=== PATIENT | female | born 1935 | race Caucasian/White ===

== ENCOUNTER 2017-11-21 12:53 | Inpatient (IN) | payer MEDICARE, OTHER ==
[2017-11-21 14:00] LABS: #Eosinphils 0.2 thou/uL (0.0-0.7); #Lymphocytes 1.5 thou/uL (1.20-3.40); #Monocytes 0.8 thou/uL (0.11-0.59); %Basophils 0.2 % (0.0-1.0); %Eosinophils 2.4 % (0.0-10.0); %Monocytes 9.2 % (0.0-10.0); %Neutrophils 70.3 % (42.0-75.0); Hemoglobin 11.9 g/dL (12.0-16.0); Mean Corpuscular HGB CONC 32.8 g/dL (32.0-36.0); Mean Corpuscular Hemoglobin 29.9 pg (27.0-31.0); Mean Corpuscular Volume 91.1 fl (81.0-99.0); Mean Platelet Volume 6.4 fL (7.4-10.4); Platelet Count 340 thou/uL (130-400); RBC Distribution Width 13.5 % (11.5-14.5); Red Blood Cell (RBC) Count 3.96 mill/uL (4.20-5.40); White Blood Cell (WBC) Count 8.5 thou/uL (4.8-10.8)
[2017-11-21] MEDS ORDERED: Vancomycin HCl 1.5 GM in Sodium Chloride 0.9% 250 ML 300 ML IVPB SCH (14:00)
[2017-11-21 14:18] LABS: ALT (SGPT) 13 U/L (8-55); AST (SGOT) 14 U/L (5-34); Albumin 3.7 g/dL (3.4-4.8); Alkaline Phosphatase 76 U/L (40-150); Anion Gap 14 mmol/L (10-20); BUN (Urea Nitrogen) 24 mg/dL (9.8-20.1); Bilirubin, Total 0.2 mg/dL (0.2-1.2); Calc. Creatinine Clearance 0 mL/min (70-130); Calcium 9.2 mg/dL (7.8-10.44); Carbon Dioxide 24 mmol/L (23-31); Chloride 103 mmol/L (98-107); Estimated GFR-MDRD 81; Glucose 95 mg/dL (83-110); Potassium 4.5 mmol/L (3.5-5.1); Protein, Total 6.7 g/dL (6.0-8.3); Sodium 136 mmol/L (136-145)
--- NOTE | 2017-11-21 15:21 | RAD ---
LEFT FOOT 3 VIEWS: HISTORY: Infection to left foot. Peripheral arterial disease. FINDINGS: Bones show osteopenia. Joint narrowing and degenerative change is seen in intertarsal joints and at the tarsometatarsal joints. There is loss of joint space with subluxation and hallux valgus deformity at the first MTP joint. Th ere is lucency involving the base of the proximal phalanx of the great toe, and this could potentiall y represent an area of osteomyelitis. Otherwise, no definite lytic or destructive process identified . IMPRESSION: Deformity of the first metatarsophalangeal joint with subluxation and hallux valgus and secondary deg enerative change. There is an abnormal lucency involving the base of the proximal phalanx of the gre at toe at this first metatarsophalangeal joint. Osteomyelitis at this site cannot be excluded. POS: WILLIAN
[2017-11-21] MEDS ORDERED: Piperacillin/Tazobactam 4.5 GM in Sodium Chloride 0.9% 100 ML IVPB SCH (16:00)
[2017-11-21] MEDS ORDERED: Ondansetron HCl/PF 4 MG/2 ML Vial IVP PRN (16:10)
[2017-11-21] MEDS ORDERED: Acetaminophen 325 MG TAB PO PRN (16:11)
[2017-11-21 16:42] LABS: Hemoglobin A1c 5.3 % (4.0-6.0)
[2017-11-21] MEDS ORDERED: methylPREDNISolone Sod Succ/PF 125 MG/2 ML VIAL ONE (16:48)
[2017-11-21] MEDS ORDERED: Water For Inject, Bacteriostat 30 ML ONE (16:48)
[2017-11-21] MEDS ORDERED: diphenhydrAMINE 50 MG/ML VIAL ONE (16:48)
--- NOTE | 2017-11-21 18:06 | HP ---
CHIEF COMPLAINT: Left foot pain. HISTORY OF PRESENT ILLNESS: This is an 82-year-old female being brought in by her family complaining of left foot pain. Patient's family states that she has been to her community services coordinator recently and has not ed to have had what appears to be a dry gangrene of her toe. The patient was started on antibiotics outpatient, ciprofloxacin. The patient's condition was found to be worsening. The patient's family states that her foot started to become red and more painful to touch, when they would perform cleanin gs on her toes. The patient has had a history of an infection on the right leg in the past and had a n above knee amputation performed as well. Patient has a history of peripheral vascular disease of u nknown origin, is not a diabetic, not a history of high blood pressure. The patient does have a hist ory of hypothyroidism, GERD, Parkinson disease, peripheral vascular disease as well as anxiety. The patient currently not able to provide a history. History obtained from family who was at bedside. N o other associated complaints or symptoms per family. No aggravating or alleviating factors. The pa tiemarce appears to be in considerable pain upon palpation of her foot. ALLERGIES: CEPHALEXIN, PROMETHAZINE and SULFA as well as PHENERGAN. FAMILY HISTORY: Positive for hypertension, diabetes and hyperlipidemia. SOCIAL HISTORY: Denies drinking, denies alcohol. PAST MEDICAL HISTORY: Pertinent for hypothyroidism, GERD, Parkinson disease, dementia, peripheral va scular disease and anxiety. PAST SURGICAL HISTORY: Positive for right-sided [id number] amputation. REVIEW OF SYSTEMS: Twelve-point review of systems is performed. Pertinent positives in the HPI, oth erwise negative. PHYSICAL EXAMINATION: VITAL SIGNS: Blood pressure of 138/88, heart rate of 92, respiratory rate of 20 and temperature of 9 7. GENERAL: The patient appears to be in mild distress, listening to her headset, making sounds that ar e non-coherent. HEENT: Normocephalic and atraumatic. Extraocular muscles intact. Pupils are equal, round, reactive to light and accommodation bilaterally. Oral cavity moist and pink. LUNGS: Clear to auscultations bilaterally, aerating well. No increase in AP diameter. CARDIOVASCULAR: Regular rate and rhythm. S1 and S2. No murmurs, rubs or gallops appreciated. ABDOMEN: Positive bowel sounds. Soft and nontender. EXTREMITIES: Right lower extremity above-knee amputation, left lower extremity positive for right gr eat toe digit 2, digit 3 gangrene, potentially dry gangrene, right foot erythema, cellulitis, tender to palpation. NEUROLOGIC: The patient is disoriented, very rigid. Muscle structure and muscle tone, not moving al l extremities. Not following commands. LABORATORY DATA: CBC within normal limits. BMP within normal limits. RADIOLOGY: Foot x-ray shows deformity of the first metatarsophalangeal joint with subluxation of the hallux valgus secondary to degenerative disease as well as osteomyelitis. There are changes and bon e structure concerning for osteomyelitis. ASSESSMENT AND PLAN: 1. Left foot osteomyelitis. 2. Parkinson disease with dementia. 3. Peripheral vascular disease. 4. Anxiety. 5. Gastroesophageal reflux disease. 6. Hypothyroid. At this point in time, we will admit the patient to Internal Medicine Service. Consults to Infectiou s Diseases as well as Vascular Surgery. We will place the patient on IV fluids and Tylenol p.r.n. P atient to get clindamycin 600 mg q.8 hours given allergies to CEPHALOSPORINS as well as SULFA-BASED D RUGS. We will obtain blood cultures. We will obtain an A1c as well as metabolic panel and CBC a.m. runs for the next 3 days. Patient has remained a FULL CODE at this point in time. We will use hepar in 5000 q.12 hours for gastrointestinal prophylaxis as well as continue home dose of loratadine for h er GERD. We will hold her Cipro that she was taking as outpatient. Case and plan discussed with the patient's family at length. They understand and agree with this plan.
[2017-11-21] MEDS: Clindamycin/D5W 600 MG in Premix Bag 1 BAG IVPB SCH (18:58)
[2017-11-21] MEDS: Sodium Chloride 0.9% 1,000 ML IV SCH (18:59)
[2017-11-21 19:43] VITALS: BMI 23.1
[2017-11-21] MEDS ORDERED: Carbidopa/Levodopa 25-100 mg Tablet PO SCH (20:45)
[2017-11-21] MEDS ORDERED: Donepezil HCl 10 MG TAB PO SCH (20:45)
[2017-11-21] MEDS ORDERED: Cefepime 2 GM in Sodium Chloride 0.9% 100 ML IVPB SCH (21:00)
[2017-11-21] MEDS: Lorazepam 1 MG TAB PO SCH (21:19)
[2017-11-21] MEDS: Loratadine 10 MG TAB PO SCH (21:19)
[2017-11-21] MEDS: Docusate 100 MG CAP PO SCH (21:19)
[2017-11-21] MEDS: Donepezil HCl 10 MG TAB PO SCH (21:20)
[2017-11-21] MEDS: Melatonin 3 MG TAB PO PRN (21:21)
[2017-11-21] MEDS: Heparin 5,000 UNITS/ML VIAL SC SCH (21:21)
[2017-11-21] MEDS: Carbidopa/Levodopa 25-100 mg Tablet PO SCH (21:21)
--- NOTE | 2017-11-21 21:25 | CON ---
DATE OF CONSULTATION: 11/21/2017 REQUESTING PHYSICIAN: Dr. Wilman Felipe from the Emergency Room. CHIEF COMPLAINT: Dry gangrene and cellulitic changes to the left foot. HISTORY OF PRESENT ILLNESS: The patient is an 82-year-old woman with Parkinson' s disease and extensive dementia. A few years ago she underwent right above knee amputation for infectious complications of gangrene affecting the right lower extremity. She has been for some time developing dry gangrenous changes affecting the tips of all of the toes on her remaining left foot, most pronounced on the great toe and becoming less pronounced as one goes laterally, but affecting all five. Over the last few days she has begun developing red changes consistent with cellulitis affecting those toes and the dorsum of the foot and is not improved with oral ciprofloxacin and the family brought her to the emergency room. PAST MEDICAL HISTORY: Significant for Parkinson's disease, hypothyroidism. HOME MEDICATIONS: Include Synthroid, pantoprazole, carbidopa/levodopa, Namenda , Plavix, glucosamine, chondroitin sulfate, Aricept, ciprofloxacin, aspirin, loratadine, lorazepam. ALLERGIES: She describes having allergies to KEFLEX, PHENERGAN and SULFA. FAMILY HISTORY: Denies any known history of vascular disease. REVIEW OF SYSTEMS: Positive for "nasal congestion." PHYSICAL EXAMINATION: GENERAL: At baseline, she is noncommunicative verbally and is bedbound. On exam, she is a demented elderly woman in mild distress. VITAL SIGNS: Temperature is 98.7, heart rate 86, blood pressure 142/70, room air O2 sats are 95%. LUNGS: She has a few rhonchi. CARDIOVASCULAR: Regular rate and rhythm. ABDOMEN: Soft and nontender. EXTREMITIES: She has flexion contractures of her lower extremities. She is status post right AKA. She has palpable left femoral pulse. No palpable pulse , the left popliteal, dorsalis pedis, posterior tibial pulses. She has dry gangrenous changes affecting the tips of all five of the toes on her left foot with much of the distal phalanx of the great toe exposed. There is a pink discoloration and mild edema affecting the foot going from the base of the gangrenous changes to the proximal dorsum. IMPRESSION AND PLAN: Peripheral vascular disease with cellulitic changes complicating dry gangrene in the demented bed bound patient. She has no streaking. Her white count is in the 8s and she is afebrile and clinically is not septic. I think it would be appropriate to initiate antibiotic therapy to try to bring the cellulitis under much control as it is feasible prior to amputation and minimize risk of surgical wound infection. I have discussed with the patient's family that wound healing above knee is far more reliable and that they are generally not much advantage to below knee amputation in nonambulators. MTDD
[2017-11-21] MEDS ORDERED: Clindamycin 6 MG/ML (PEDI) IVPB SCH (22:00)
[2017-11-22] MEDS: Clindamycin/D5W 600 MG in Premix Bag 1 BAG IVPB SCH ×3 (02:26→17:17)
[2017-11-22] MEDS: Sodium Chloride 0.9% 1,000 ML IV SCH ×2 (05:40→17:18)
[2017-11-22 06:24] LABS: Anion Gap 15 mmol/L (10-20); BUN (Urea Nitrogen) 17 mg/dL (9.8-20.1); Calc. Creatinine Clearance 62 mL/min (70-130); Calcium 9.1 mg/dL (7.8-10.44); Carbon Dioxide 20 mmol/L (23-31); Chloride 105 mmol/L (98-107); Estimated GFR-MDRD 83; Glucose 146 mg/dL (83-110); Potassium 4.7 mmol/L (3.5-5.1); Sodium 135 mmol/L (136-145)
[2017-11-22 06:40] LABS: Hemoglobin 11.7 g/dL (12.0-16.0); Lymphocytes 11 % (21-51); MDiff Complete? YES; Mean Corpuscular HGB CONC 32.6 g/dL (32.0-36.0); Mean Corpuscular Hemoglobin 29.7 pg (27.0-31.0); Mean Corpuscular Volume 91.1 fl (81.0-99.0); Mean Platelet Volume 6.7 fL (7.4-10.4); Monocytes 3 % (0-10); Neutrophil 86 % (42-75); Platelet Count 396 thou/uL (130-400); RBC Distribution Width 13.3 % (11.5-14.5); Red Blood Cell (RBC) Count 3.93 mill/uL (4.20-5.40); White Blood Cell (WBC) Count 9.4 thou/uL (4.8-10.8)
[2017-11-22] MEDS: Levothyroxine Sodium 50 MCG TAB PO SCH (06:41)
[2017-11-22] MEDS ORDERED: Clopidogrel Bisulfate 75 MG TAB PO SCH (09:00)
[2017-11-22] MEDS: Calcium Carbonate + Vit D 1 TAB PO SCH (09:11)
[2017-11-22] MEDS: Simethicone Chewable 80 MG TAB PO SCH (09:12)
[2017-11-22] MEDS: Docusate 100 MG CAP PO SCH ×2 (09:12→20:00)
[2017-11-22] MEDS: GLUCOSAMINE CHON PO SCH (09:12)
[2017-11-22] MEDS: Carbidopa/Levodopa 25-100 mg Tablet PO SCH ×2 (09:12→20:52)
[2017-11-22] MEDS: Heparin 5,000 UNITS/ML VIAL SC SCH ×2 (09:13→19:58)
--- NOTE | 2017-11-22 12:00 | RAD ---
PORTABLE CHEST: HISTORY: Preop clearance. FINDINGS: Cardiomegaly. Prominent aortic calcification. Elevation of right hemidiaphragm is stable from the p rior exam of 2009. There is density seen through the cardiac silhouette, which could represent a left lower lobe opacity . This should be further evaluated with upright PA and lateral views of the chest or a chest CT prio r to surgical procedure. Findings were relayed to the patient's nurse on the Surgical A floor, who w ill notify Dr. Cleary of this finding and recommendation. CODE CR POS: [id number]
[2017-11-22] MEDS ORDERED: Aspirin 81 mg Enteric Coated Tablet PO SCH (17:00)
[2017-11-22] MEDS: Milk Of Magnesia 30 ML UDCUP PO SCH (17:15)
--- NOTE | 2017-11-22 17:45 | PDOC.PN ---
- Subjective Encounter Start Date: 11/22/17 Encounter Start Time: 17:43 Patient seen at bedside. No overnight events, no new complaints. - Objective MAR Reviewed: Yes Vital Signs & Weight: Vital Signs (12 hours) Temp Pulse Resp BP Pulse Ox 11/22/17 15:39 98.5 F 69 20 124/51 L 100 11/22/17 12:00 98.4 F 69 18 92/51 L 100 11/22/17 08:00 97.5 F L 69 18 102/75 100 Weight Weight 130 lb 12.8 oz Result Diagrams: 11/22/17 05:33 11/22/17 05:33 Phys Exam - Physical Examination Constitutional: NAD HEENT: moist MMs Neck: no JVD Respiratory: no rales Cardiovascular: RRR Gastrointestinal: soft R AKA Deviation from normal: gangrenous changes in all toes on L foot Dx/Plan (1) Osteomyelitis Code(s): M86.9 - OSTEOMYELITIS, UNSPECIFIED Status: Acute Qualifiers: Laterality: left (2) Gangrene of left foot Code(s): I96 - GANGRENE, NOT ELSEWHERE CLASSIFIED Status: Acute (3) Parkinson disease Code(s): G20 - PARKINSON'S DISEASE Status: Chronic (4) Cellulitis Code(s): L03.90 - CELLULITIS, UNSPECIFIED Status: Suspected Qualifiers: Site of cellulitis: extremity Site of cellulitis of extremity: lower extremity Laterality: left Qualified Code(s): L03.116 - Cellulitis of left lower limb - Plan cont current plan of care, plan discussed w/ family, continue antibiotics, social science teacher, DVT proph w/SCDs * Hold Plavix. * Pre-op EKG * For AKA in AM * Continue IV antibiotics
--- NOTE | 2017-11-22 19:52 | CON ---
DATE OF CONSULTATION: 11/22/2017 REASON FOR CONSULTATION: Left foot areas of gangrene. HISTORY OF PRESENT ILLNESS: An 82-year-old who has a history of Parkinson's disease with dementia, a nd peripheral vascular disease with a prior right above-knee [place] [address] Chen, who now has developed progression of dry gangrene of the first, second, and third left toes associated with cellulitis of the forefoot area. The patient was admitted and placed on IV antimicrobial therapy and CV Surgery has evaluated the patient and I believe she is scheduled for amputation tentatively for t omorrow. Ms. Cifuentes now is awake, but she is unable to interact with the examiner due to her severe cognitive deficit, but her sister is in the room and was able to inform me. She is 100% dependent o n family members for her activities of daily living. According to the sister, there has been no resp iratory symptoms. No abdominal issues. No vomiting. No bleeding and no genitourinary symptoms. N o diarrhea. PAST MEDICAL HISTORY: Include peripheral vascular disease, Parkinson's disease, dementia, probably p rior infarcts, a question of vascular insufficiency of the mesenteric are. PAST SURGICAL HISTORY: Right AKA. ALLERGIES: BACTRIM, KEFLEX, GEODON, PHENERGAN. SOCIAL HISTORY: Lives in [place] with family members. Never a smoker. FAMILY HISTORY: Coronary artery disease. PHYSICAL EXAMINATION: Current physical exam, VITAL SIGNS: T-max 99.5, currently 98.4; blood pressure 92/51; pulse 69; respirations 18; O2 sat 100 %. SKIN: Shows the area of first, second, and third left toe gangrene with erythema to the forefoot, le ft side. The patient has a peripheral IV access in one of the upper extremities. No Oneill catheter. No lymphadenopathy. Contractures in the left lower extremity. HEENT: She has blepharitis. Oral cavity with numerous teeth with marked decay and gum disease. NECK: Supple. LUNGS: With symmetric clear breath sounds. HEART: S1, S2. Regular rate. ABDOMEN: Soft. Not distended. No ascites. No bladder distention. EXTREMITIES: No evidence of tenderness. Contracted left lower extremity. I could not feel any popl iteal, dorsalis pedis, or posterior tibialis pulses. LABORATORY DATA: White cell count 9.4, hemoglobin 11, platelets 396 with a normal differential excep t for some lymphocytopenia. Creatinine normal. Liver profile normal. Sodium is 135, albumin 3.7. TSH is 7.6. Urinalysis is normal. We will have culture from the foot, which is a swab from the open areas with presumptive enterococcus species which could be a contaminant or just a colonizer of the area. Two sets of blood cultures thus far are negative. Foot x-ray from admission with deformity of first MPJ joint; abnormal lucency at the base of the proximal phalanx, great toe. ASSESSMENT: 1. Parkinson's disease with severe dementia. 2. Contractures in limbs. 3. Prior above-knee amputation, right side. 4. Gangrene of first, second, and third left toes with cellulitis of forefoot; now improved. DISCUSSION: The patient does not have the expectation of functional use of the left lower extremity and she has evidence of a small vessel disease likely in the left leg. I believe the best choice for management is the planned amputation. I discussed that with a relative, who seemed to be interested since it would yield the best quality of life for the patient vis-?-vis her functional status. I do not think vascular studies would give us any information that would price changer. Continue ant imicrobial therapy until the amputation and then discontinue it as long as blood cultures remain nega tive.
[2017-11-22] MEDS: Lorazepam 1 MG TAB PO SCH (20:52)
[2017-11-22] MEDS: Loratadine 10 MG TAB PO SCH (20:52)
[2017-11-22] MEDS: Donepezil HCl 10 MG TAB PO SCH (20:52)
[2017-11-22] MEDS: Melatonin 3 MG TAB PO PRN (20:53)
[2017-11-23] MEDS: Clindamycin/D5W 600 MG in Premix Bag 1 BAG IVPB SCH ×3 (01:55→17:51)
[2017-11-23 05:52] LABS: Hemoglobin 10.6 g/dL (12.0-16.0); Lymphocytes 36 % (21-51); MDiff Complete? YES; Mean Corpuscular HGB CONC 32.7 g/dL (32.0-36.0); Mean Corpuscular Hemoglobin 29.6 pg (27.0-31.0); Mean Corpuscular Volume 90.5 fl (81.0-99.0); Mean Platelet Volume 6.9 fL (7.4-10.4); Monocytes 5 % (0-10); Neutrophil 57 % (42-75); Platelet Count 313 thou/uL (130-400); RBC Distribution Width 13.3 % (11.5-14.5); Red Blood Cell (RBC) Count 3.57 mill/uL (4.20-5.40); White Blood Cell (WBC) Count 6.2 thou/uL (4.8-10.8)
[2017-11-23] MEDS: Levothyroxine Sodium 50 MCG TAB PO SCH (06:07)
[2017-11-23 06:08] LABS: Anion Gap 13 mmol/L (10-20); BUN (Urea Nitrogen) 19 mg/dL (9.8-20.1); Calc. Creatinine Clearance 65 mL/min (70-130); Calcium 8.5 mg/dL (7.8-10.44); Carbon Dioxide 21 mmol/L (23-31); Chloride 108 mmol/L (98-107); Estimated GFR-MDRD 88; Glucose 89 mg/dL (83-110); Potassium 4.2 mmol/L (3.5-5.1); Sodium 138 mmol/L (136-145)
[2017-11-23] MEDS ORDERED: Fentanyl 100 MCG/2 ML VIAL ONE (07:33)
[2017-11-23] MEDS ORDERED: Fentanyl 100 MCG/2 ML VIAL SLOW IVP PRN (08:48)
[2017-11-23] MEDS ORDERED: Ibuprofen 200 MG TAB PO PRN (08:48)
--- NOTE | 2017-11-23 09:11 | OP ---
DATE OF PROCEDURE: 11/23/2017 PREOPERATIVE DIAGNOSIS: Gangrene, left foot with contractures left leg. PROCEDURE: Left [id number] amputation. SURGEON: Dr. Kael Chen ANESTHESIA: Spinal. ESTIMATED BLOOD LOSS: Less than 100. PROCEDURE IN DETAIL: After adequate anesthesia had been obtained, the patient was prepped and draped . Skin was marked for amputation above the knee, anterior and posterior flaps. Knife was used to in cise the skin circumferentially following which the Bovie was used to divide the soft tissues, preser ving the long and rectus flap anteriorly. Vessels were ligated and divided and nerves were pulled an d divided sharply. Gigli saw was used to divide the femur. The specimen was passed off the field. Bone was then rasped smooth on the edges and then the rectus femoris was then approximated over the f emur. Following this, the skin was closed with gloria after irrigation. The patient is to be taken to the recovery room.
[2017-11-23] MEDS ORDERED: Ondansetron HCl/PF 4 MG/2 ML Vial IVP PRN (09:28)
[2017-11-23] MEDS: Docusate 100 MG CAP PO SCH ×2 (10:25→21:18)
[2017-11-23] MEDS: Sodium Chloride 0.9% 1,000 ML IV SCH ×2 (10:26→17:52)
[2017-11-23] MEDS: Calcium Carbonate + Vit D 1 TAB PO SCH (10:33)
[2017-11-23] MEDS: Carbidopa/Levodopa 25-100 mg Tablet PO SCH ×2 (10:34→21:09)
[2017-11-23] MEDS: Simethicone Chewable 80 MG TAB PO SCH (10:34)
[2017-11-23] MEDS: GLUCOSAMINE CHON PO SCH (10:35)
[2017-11-23] MEDS: Heparin 5,000 UNITS/ML VIAL SC SCH ×2 (11:28→21:09)
[2017-11-23] MEDS: traMADol HCl 50 MG TAB PO PRN (13:36)
--- NOTE | 2017-11-23 14:29 | PQF ---
NUVIA TIPTON MALIK MD [id number] SURG A- [id number] CLINICAL DOCUMENTATION IMPROVEMENT CLARIFICATION FORM: ICD-10 Updated PLEASE DO AN ADDENDUM TO THE PROGRESS NOTE WITH ANY DOCUMENTATION UPDATES OR ADDITIONS AND CARRY THROUGH TO DC SUMMARY. THANK YOU. DATE: 11-23-17 ATTN: DR. PARDO Please exercise your independent, professional judgment in responding to the clarification form. Clinical indicators are provided on the bottom of this form for your review Please check appropriate box(s): [ ] Hemiplegia Specify: [ ] Non dominant side [ ] Dominant side Status: [ ] Complete [ ] Incomplete [ ] Functional Quadriplegia W/ Parkinson dx w/ severe dementia [ ] Weakness (please specify anatomical area) Specify: [ ] Non dominant side [ ] Dominant side [ ] Other diagnosis [ ] Unable to determine CLINICAL INDICATORS - SIGNS / SYMPTOMS / LABS CONSULT: FLEXION CONTRACTURES LE; DEMENTED; BED BOUND PATIENT 11-21 NURSING ASSESSMENT: UNABLE TO STAND / WALK ORIENTATION - ABUSABLE TO NAME/ SPEECH UNCLEAR TOTAL ASSISTANCE CONTRACTED BUE AND LLE TOTAL INCONTINENCE - DIAPER RISK FACTORS H&P: ALZHEIMERS W/ SEVERE DEMENTIA CONSULT: DEMENTED TREATMENT: 11-21 @ 2014 NURSING ASSESSMENT: UNABLE TO STAND / WALK TOTAL ASSISTANCE - TURN Q2H TOTAL INCONTINENCE - DIAPER THANK YOU, WHITNEY (This form is maintained as a part of the permanent medical record) 2014 [employer]. All Rights Reserved Whitney Moreno RN, BS [email or web address]
[2017-11-23] MEDS: Milk Of Magnesia 30 ML UDCUP PO SCH (15:17)
[2017-11-23] MEDS: Loratadine 10 MG TAB PO SCH (21:08)
[2017-11-23] MEDS: Donepezil HCl 10 MG TAB PO SCH (21:08)
[2017-11-23] MEDS: Lorazepam 1 MG TAB PO SCH (21:09)
[2017-11-23] MEDS: Melatonin 3 MG TAB PO PRN (21:09)
[2017-11-24] MEDS: Clindamycin/D5W 600 MG in Premix Bag 1 BAG IVPB SCH ×3 (01:46→17:28)
[2017-11-24] MEDS: traMADol HCl 50 MG TAB PO PRN (06:23)
[2017-11-24] MEDS: Levothyroxine Sodium 50 MCG TAB PO SCH (06:24)
[2017-11-24 06:56] LABS: Hemoglobin 10.4 g/dL (12.0-16.0); Mean Corpuscular HGB CONC 32.1 g/dL (32.0-36.0); Mean Corpuscular Hemoglobin 28.8 pg (27.0-31.0); Mean Corpuscular Volume 89.8 fl (81.0-99.0); Mean Platelet Volume 6.5 fL (7.4-10.4); Platelet Count 351 thou/uL (130-400); RBC Distribution Width 13.3 % (11.5-14.5); Red Blood Cell (RBC) Count 3.61 mill/uL (4.20-5.40)
[2017-11-24 07:19] LABS: Anion Gap 12 mmol/L (10-20); BUN (Urea Nitrogen) 13 mg/dL (9.8-20.1); Calc. Creatinine Clearance 75 mL/min (70-130); Calcium 8.5 mg/dL (7.8-10.44); Carbon Dioxide 21 mmol/L (23-31); Chloride 105 mmol/L (98-107); Estimated GFR-MDRD Greater than 90; Glucose 101 mg/dL (83-110); Magnesium 1.5 mg/dL (1.6-2.6); Potassium 3.8 mmol/L (3.5-5.1); Sodium 134 mmol/L (136-145)
[2017-11-24] MEDS: Saccharomyces boulardii 250 MG CAP PO SCH (08:08)
[2017-11-24] MEDS: Clopidogrel Bisulfate 75 MG TAB PO SCH (08:08)
[2017-11-24] MEDS: Carbidopa/Levodopa 25-100 mg Tablet PO SCH ×2 (08:08→21:37)
[2017-11-24] MEDS: Calcium Carbonate + Vit D 1 TAB PO SCH (08:08)
[2017-11-24] MEDS: Simethicone Chewable 80 MG TAB PO SCH (08:09)
[2017-11-24] MEDS: GLUCOSAMINE CHON PO SCH (08:09)
[2017-11-24] MEDS: Heparin 5,000 UNITS/ML VIAL SC SCH ×2 (08:09→21:38)
[2017-11-24] MEDS: Docusate 100 MG CAP PO SCH ×2 (08:17→21:38)
[2017-11-24 08:24] LABS: Band 2 % (5-11); Eosinophils 1 % (0-10); Lymphocytes 23 % (21-51); MDiff Complete? YES; Monocytes 6 % (0-10); Neutrophil 68 % (42-75); RBC Morphology Normal
[2017-11-24] MEDS ORDERED: Magnesium 2 GM/NS 0.9% 100 ML 2 GM in Premix Bag 1 BAG IVPB SCH (09:15)
--- NOTE | 2017-11-24 09:15 | PDOC.PN ---
- Subjective Encounter Start Date: 11/23/17 Encounter Start Time: 17:00 -: non-verbal Patient seen and examined. Pain controlled per family. No overnight events. - Objective MAR Reviewed: Yes Vital Signs & Weight: Vital Signs (12 hours) Temp Pulse Resp BP Pulse Ox 11/23/17 23:38 98.7 F 76 16 155/78 H 74 L Weight Weight 130 lb 12.8 oz I&O: 11/23/17 11/24/17 11/25/17 06:59 06:59 06:59 Intake Total 2850 975 Balance 2850 975 Result Diagrams: 11/24/17 06:20 11/24/17 06:20 Phys Exam - Physical Examination Constitutional: NAD Respiratory: no wheezing, no rhonchi Cardiovascular: RRR, no rub Gastrointestinal: soft, non-tender, positive bowel sounds Dx/Plan - Plan plan discussed w/ family, DVT proph w/heparin IMPRESSION: 1. Left foot osteomyelitis and dry gangrene s/p AKA 11/23 2. Parkinson's disease 3. PVD 4. Anxiety 5. GERD/Functional Quadriplegia W/ Parkinson dx w/ severe dementia PLAN: * Pain control with Fentanyl/Tramadol * Cont to monitor * Cont current meds as below * Home meds started * High risk of delirium Review of Systems - Review of Systems Other: Cannot obtain due to current mentation - Medications/Allergies Allergies/Adverse Reactions: Allergies Allergy/AdvReac Type Severity Reaction Status Date / Time cephalexin [From Keflex] Allergy Verified 11/21/17 17:56 promethazine [From Phenergan] Allergy Verified 11/21/17 17:56 Sulfa (Sulfonamide Allergy Verified 11/21/17 17:56 Antibiotics) vancomycin Allergy Verified 11/21/17 17:56 Medications: Current Medications Acetaminophen (Tylenol) 325 mg PO Q6H PRN PRN Reason: Headache/Fever or Pain Calcium/Vitamin D (Caltrate 600 + Vit D) 1 tab PO DAILY [facility] Last Admin: 11/24/17 08:08 Dose: 1 tab Carbidopa/Levodopa (Sinemet 25-100) 1 tab PO BID [facility] Last Admin: 11/24/17 08:08 Dose: 1 tab Clopidogrel Bisulfate (Plavix) 75 mg PO DAILY [facility] Last Admin: 11/24/17 08:08 Dose: 75 mg Docusate Sodium (Colace) 100 mg PO BID [facility] Last Admin: 11/24/17 08:17 Dose: 100 mg Donepezil HCl (Aricept) 10 mg PO HS [facility] Last Admin: 11/23/17 21:08 Dose: 10 mg Fentanyl (Sublimaze) 25 mcg SLOW IVP Q2H PRN PRN Reason: Severe Pain (7-10) Last Admin: 11/23/17 12:06 Dose: 25 mcg Heparin Sodium (Porcine) (Heparin) 5,000 units SC BID [facility] Last Admin: 11/24/17 08:09 Dose: 5,000 units Sodium Chloride (Normal Saline 0.9%) 1,000 mls @ 75 mls/hr IV .[id number] [facility] Last Admin: 11/23/17 17:52 Dose: 1,000 mls Clindamycin Phosphate/Dextrose (600 mg/ Device) 50 mls @ 100 mls/hr IVPB 0200, 1000,1800 [facility] Last Admin: 11/24/17 01:46 Dose: 50 mls Magnesium Sulfate 2 gm/ Device 100 mls @ 100 mls/hr IVPB NOW [facility] Stop: 11/24/17 11:15 Ibuprofen (Motrin) 200 mg PO Q4H PRN PRN Reason: Pain Levothyroxine Sodium (Synthroid) 50 mcg PO 0600 [facility] Last Admin: 11/24/17 06:24 Dose: 50 mcg Loratadine (Claritin) 10 mg PO HS [facility] Last Admin: 11/23/17 21:08 Dose: 10 mg Lorazepam (Ativan) 1 mg PO HS [facility] Last Admin: 11/23/17 21:09 Dose: 1 mg Magnesium Hydroxide (Milk Of Magnesium) 30 ml PO QPM[facility] Last Admin: 11/23/17 15:17 Dose: Not Given Melatonin (Melatonin) 6 mg PO HS PRN PRN Reason: Insomnia Last Admin: 11/23/17 21:09 Dose: 6 mg Memantine (Namenda) 10 mg PO DAILY [facility] Last Admin: 11/24/17 08:08 Dose: 10 mg Miscellaneous Medication (Pharmacy To Dose) 1 each IVPB ONE PRN PRN Reason: Pharmacy to dose Stop: 12/23/17 18:35 Ondansetron HCl (Zofran) 4 mg IVP Q6H PRN PRN Reason: Nausea/Vomiting Pantoprazole Sodium (Protonix) 40 mg PO DAILY [facility] Last Admin: 11/24/17 08:09 Dose: 40 mg Glucosamine Won 1 (Tablet) 1 each PO DAILY [facility] Last Admin: 11/24/17 08:09 Dose: 1 each Saccharomyces Boulardii (Florastor) 250 mg PO DAILY [facility] Last Admin: 11/24/17 08:08 Dose: 250 mg Simethicone (Mylicon Chewable) 80 mg PO DAILY [facility] Last Admin: 11/24/17 08:09 Dose: 80 mg Tramadol HCl (Ultram) 50 mg PO Q6H PRN PRN Reason: Moderate Pain (4-6) Last Admin: 11/24/17 06:23 Dose: 50 mg
[2017-11-24] MEDS: Sodium Chloride 0.9% 1,000 ML IV SCH (10:11)
--- NOTE | 2017-11-24 16:11 | PDOC.PN ---
- Subjective Encounter Start Date: 11/24/17 Encounter Start Time: 09:00 -: non-verbal Patient seen and examined. No new complaints. No overnight events - Objective MAR Reviewed: Yes Vital Signs & Weight: Vital Signs (12 hours) Temp Pulse Resp BP Pulse Ox 11/24/17 12:00 98.3 F 78 20 139/63 94 L 11/24/17 08:09 99.7 F H 84 20 93 L 11/24/17 07:50 99.7 F H 84 20 165/74 H 93 L Weight Weight 130 lb 12.8 oz I&O: 11/23/17 11/24/17 11/25/17 06:59 06:59 06:59 Intake Total 2850 975 Balance 2850 975 Result Diagrams: 11/24/17 06:20 11/24/17 06:20 Phys Exam - Physical Examination Constitutional: NAD Respiratory: no wheezing, no rhonchi Cardiovascular: RRR, no rub Gastrointestinal: soft, non-tender, positive bowel sounds B/L AKA Dx/Plan - Plan plan discussed w/ family, DVT proph w/heparin IMPRESSION: 1. Left foot osteomyelitis and dry gangrene s/p AKA 11/23 2. Parkinson's disease - on Sinemet 3. PVD - on Plavix 4. Hypomagnesemia 5. GERD/Functional Quadriplegia W/ Parkinson dx with severe dementia/Anxiety PLAN: * Replace Magnessium * Pain control with Fentanyl/Tramadol * Cont to monitor * Cont current meds as below Laboratory Tests 11/24/17 06:20 Magnesium 1.5 L Review of Systems - Review of Systems Other: Cannot obtain due to current mentation. - Medications/Allergies Allergies/Adverse Reactions: Allergies Allergy/AdvReac Type Severity Reaction Status Date / Time cephalexin [From Keflex] Allergy Verified 11/21/17 17:56 promethazine [From Phenergan] Allergy Verified 11/21/17 17:56 Sulfa (Sulfonamide Allergy Verified 11/21/17 17:56 Antibiotics) vancomycin Allergy Verified 11/21/17 17:56 Medications: Current Medications Acetaminophen (Tylenol) 325 mg PO Q6H PRN PRN Reason: Headache/Fever or Pain Calcium/Vitamin D (Caltrate 600 + Vit D) 1 tab PO DAILY [facility] Last Admin: 11/24/17 08:08 Dose: 1 tab Carbidopa/Levodopa (Sinemet 25-100) 1 tab PO BID [facility] Last Admin: 11/24/17 08:08 Dose: 1 tab Clopidogrel Bisulfate (Plavix) 75 mg PO DAILY [facility] Last Admin: 11/24/17 08:08 Dose: 75 mg Docusate Sodium (Colace) 100 mg PO BID [facility] Last Admin: 11/24/17 08:17 Dose: 100 mg Donepezil HCl (Aricept) 10 mg PO HS [facility] Last Admin: 11/23/17 21:08 Dose: 10 mg Fentanyl (Sublimaze) 25 mcg SLOW IVP Q2H PRN PRN Reason: Severe Pain (7-10) Last Admin: 11/23/17 12:06 Dose: 25 mcg Heparin Sodium (Porcine) (Heparin) 5,000 units SC BID [facility] Last Admin: 11/24/17 08:09 Dose: 5,000 units Sodium Chloride (Normal Saline 0.9%) 1,000 mls @ 75 mls/hr IV .[id number] [facility] Last Admin: 11/24/17 10:11 Dose: 1,000 mls Clindamycin Phosphate/Dextrose (600 mg/ Device) 50 mls @ 100 mls/hr IVPB 0200, 1000,1800 [facility] Last Admin: 11/24/17 10:10 Dose: 50 mls Ibuprofen (Motrin) 200 mg PO Q4H PRN PRN Reason: Pain Levothyroxine Sodium (Synthroid) 50 mcg PO 0600 [facility] Last Admin: 11/24/17 06:24 Dose: 50 mcg Loratadine (Claritin) 10 mg PO HS [facility] Last Admin: 11/23/17 21:08 Dose: 10 mg Lorazepam (Ativan) 1 mg PO HS [facility] Last Admin: 11/23/17 21:09 Dose: 1 mg Magnesium Hydroxide (Milk Of Magnesium) 30 ml PO QPM-[facility] Last Admin: 11/23/17 15:17 Dose: Not Given Melatonin (Melatonin) 6 mg PO HS PRN PRN Reason: Insomnia Last Admin: 11/23/17 21:09 Dose: 6 mg Memantine (Namenda) 10 mg PO DAILY [facility] Last Admin: 11/24/17 08:08 Dose: 10 mg Miscellaneous Medication (Pharmacy To Dose) 1 each IVPB ONE PRN PRN Reason: Pharmacy to dose Stop: 12/23/17 18:35 Ondansetron HCl (Zofran) 4 mg IVP Q6H PRN PRN Reason: Nausea/Vomiting Pantoprazole Sodium (Protonix) 40 mg PO DAILY [facility] Last Admin: 11/24/17 08:09 Dose: 40 mg Glucosamine Won 1 (Tablet) 1 each PO DAILY [facility] Last Admin: 11/24/17 08:09 Dose: 1 each Saccharomyces Boulardii (Florastor) 250 mg PO DAILY [facility] Last Admin: 11/24/17 08:08 Dose: 250 mg Simethicone (Mylicon Chewable) 80 mg PO DAILY [facility] Last Admin: 11/24/17 08:09 Dose: 80 mg Tramadol HCl (Ultram) 50 mg PO Q6H PRN PRN Reason: Moderate Pain (4-6) Last Admin: 11/24/17 06:23 Dose: 50 mg
[2017-11-24] MEDS: Milk Of Magnesia 30 ML UDCUP PO SCH (17:29)
[2017-11-24] MEDS: Donepezil HCl 10 MG TAB PO SCH (21:37)
[2017-11-24] MEDS: Lorazepam 1 MG TAB PO SCH (21:37)
[2017-11-24] MEDS: Loratadine 10 MG TAB PO SCH (21:37)
[2017-11-25] MEDS: Levothyroxine Sodium 50 MCG TAB PO SCH (05:57)
[2017-11-25] MEDS: traMADol HCl 50 MG TAB PO PRN (05:57)
--- NOTE | 2017-11-25 07:52 | DIS ---
HOSPITAL COURSE: This is a patient cared for at home by her family with advanced dementia, prior rig ht [id number] amputation who presents with progressive gangrenous changes in her left foot and as sociated cellulitis. She was taken to the operating room for a left above knee amputation and did we ll from that. Wound edges are pink and no drainage at the time of discharge. She will resume her ho me medicines including Cipro which she has been taking. Discharge and follow up instructions have be en given.
[2017-11-25] MEDS ORDERED: Cipro 250 MG TAB PO SCH ×3 (08:00→20:00)
[2017-11-25] MEDS: Simethicone Chewable 80 MG TAB PO SCH (09:38)
[2017-11-25] MEDS: Heparin 5,000 UNITS/ML VIAL SC SCH (09:38)
[2017-11-25] MEDS: Clopidogrel Bisulfate 75 MG TAB PO SCH (09:38)
[2017-11-25] MEDS: Calcium Carbonate + Vit D 1 TAB PO SCH (09:38)
[2017-11-25] MEDS: Carbidopa/Levodopa 25-100 mg Tablet PO SCH (09:38)
[2017-11-25] MEDS: Docusate 100 MG CAP PO SCH (09:38)
[2017-11-25] MEDS: Saccharomyces boulardii 250 MG CAP PO SCH (09:39)
[2017-11-25] MEDS: GLUCOSAMINE CHON PO SCH (09:39)
[2017-11-25 10:07] VITALS: BP 148/55; TEMP 97.9
--- NOTE | 2017-11-25 18:14 | DIS ---
DATE OF DISCHARGE: 11/25/2017 DISCHARGE DISPOSITION: Home with home health care through [facility]. FOLLOWUP: 1. Follow up with Dr. Ricki Cancino in 1 week. 2. Follow up with Dr. Kael Chen as scheduled. ALLERGIES: The patient is allergic to VANCOMYCIN, SULFA, PHENERGAN and KEFLEX. DISCHARGE MEDICATIONS: 1. Ciprofloxacin 500 mg b.i.d., #10. 2. Tramadol as needed for pain. Other home medications were resumed including Aspirin 81 mg daily, carbidopa/levodopa 25/100 ER one t ablet b.i.d., Plavix 75 mg daily, Colace 100 mg b.i.d., Aricept 10 mg q.p.m., glucosamine one tablet daily, levothyroxine 50 mcg daily, loratadine 10 mg at bedtime, lorazepam 1 mg at bedtime, magnesium hydroxide 400 mg q.p.m., melatonin 6 mg at bedtime, Namenda 10 mg daily, multivitamin 1 tablet daily, Protonix 40 mg daily, simethicone 80 mg daily. INPATIENT CONSULTANTS: Infectious Disease, Dr. Coleman; Cardiovascular, Dr. Chen. BRIEF HOSPITAL COURSE: The patient is an 82-year-old female with hypertension; diabetes mellitus, ty pe 2; peripheral vascular disease; and a right AKA in the past; presented to the hospital with left f oot pain. Her workup was consistent with left foot osteomyelitis. Please refer to the history and p hysical dated 11/21/[address] Quigley for further details. The patient was admitted to the surgical floor with the above diagnosis. She underwent left AKA on 0 11/23/2017. She has been cleared by Dr. Chen for discharge. She will be discharged home with home [facility] per family's request. FINAL DIAGNOSES: 1. Left foot osteomyelitis with dry gangrene, status post AKA this admission. 2. 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 3. Peripheral vascular disease. 4. Parkinson disease. 5. Hypomagnesemia, replaced. 6. Gastroesophageal reflux disease. 7. Functional quadriplegia with Parkinson disease with severe dementia and anxiety. 8. Chronic anemia. 9. Hyponatremia. Plan of care was discussed with the patient and the family at the bedside. They stated understanding .
--- NOTE | 2017-11-26 19:43 | EKG ---
Test Reason : Blood Pressure : / mmHG Vent. Rate : 080 BPM Atrial Rate : 075 BPM P-R Int : 000 ms QRS Dur : 100 ms QT Int : 426 ms P-R-T Axes : 000 -03 204 degrees QTc Int : 491 ms Accelerated Junctional rhythm Septal infarct (cited on or before 10-JUL-2010) Abnormal ECG When compared with ECG of 10-JUL-2010 16:38, Premature ventricular complexes are no longer Present Questionable change in initial forces of Septal leads Inverted T waves have replaced nonspecific T wave abnormality in Inferior leads Confirmed by PEREZ SHEPHERD (2) on 11/26/2017 7:43:17 PM Referred By: ONUR Confirmed By:PEREZ SHEPHERD
== END 2017-11-25 10:08 | disposition home or self-care (01) | DRG 474 ==
LOC: ERS 12:53 → SURG A 17:10
PROVIDERS: ADMIT Internal Medicine; ATTEND Internal Medicine
PROC: 0Y6D0Z3 Detachment at Left Upper Leg, Low, Open Approach (ICD-10-PCS; principal; 2017-11-23)
DX: M86.8X7 Other osteomyelitis, ankle and foot (principal); R53.2 Functional quadriplegia; I96 Gangrene, not elsewhere classified; G20 Parkinson's disease; E83.42 Hypomagnesemia; E87.1 Hypo-osmolality and hyponatremia; L03.116 Cellulitis of left lower limb; D64.9 Anemia, unspecified; F02.80 Dementia in other diseases classified elsewhere, unspecified severity, without behavioral disturbance, psychotic disturbance, mood disturbance, and anxiety; I73.9 Peripheral vascular disease, unspecified; M24.575 Contracture, left foot; E03.9 Hypothyroidism, unspecified; K21.9 Gastro-esophageal reflux disease without esophagitis; F41.9 Anxiety disorder, unspecified; Z88.1 Allergy status to other antibiotic agents; Z88.2 Allergy status to sulfonamides; Z88.9 Allergy status to unspecified drugs, medicaments and biological substances; Z83.3 Family history of diabetes mellitus; Z82.49 Family history of ischemic heart disease and other diseases of the circulatory system
CPT/HCPCS: 36415; 71045; 80048; 80053; 83036; 83605; 83735; 85007; 85025; 85027; 86850; 86900; 86901; 87040; 87070; 87077; 87186; 87205; 88307; 93005; 93010; 96365; 96366; 96375; J1200; J1644; J2543; J2930; J3010; J3370; J3475; J3490; J7050

== ENCOUNTER 2017-12-07 17:27 | Observation (INO) | payer MEDICARE, OTHER ==
[2017-12-07 18:29] LABS: #Eosinphils 0.3 thou/uL (0.0-0.7); #Lymphocytes 2.1 thou/uL (1.20-3.40); #Monocytes 0.8 thou/uL (0.11-0.59); #Neutrophils 5.5 thou/uL (1.40-6.50); %Basophils 0.3 % (0.0-1.0); %Eosinophils 3.9 % (0.0-10.0); %Lymphocytes 24.1 % (21.0-51.0); %Monocytes 8.6 % (0.0-10.0); %Neutrophils 63.1 % (42.0-75.0); Hemoglobin 11.6 g/dL (12.0-16.0); Mean Corpuscular HGB CONC 31.9 g/dL (32.0-36.0); Mean Corpuscular Hemoglobin 28.4 pg (27.0-31.0); Mean Platelet Volume 6.8 fL (7.4-10.4); Platelet Count 473 thou/uL (130-400); RBC Distribution Width 13.8 % (11.5-14.5); Red Blood Cell (RBC) Count 4.09 mill/uL (4.20-5.40); White Blood Cell (WBC) Count 8.8 thou/uL (4.8-10.8)
[2017-12-07] MEDS ORDERED: Meropenem 1 GM in Sterile Water 20 ML SLOW IVP SCH (18:30)
[2017-12-07 18:51] LABS: ALT (SGPT) 11 U/L (8-55); AST (SGOT) 15 U/L (5-34); Albumin 3.7 g/dL (3.4-4.8); Alkaline Phosphatase 92 U/L (40-150); Anion Gap 16 mmol/L (10-20); BUN (Urea Nitrogen) 23 mg/dL (9.8-20.1); Bilirubin, Total 0.2 mg/dL (0.2-1.2); Calc. Creatinine Clearance 0 mL/min (70-130); Calcium 9.2 mg/dL (7.8-10.44); Carbon Dioxide 21 mmol/L (23-31); Chloride 103 mmol/L (98-107); Estimated GFR-MDRD 85; Globulin 2.9 g/dL (2.4-3.5); Glucose 105 mg/dL (83-110); Potassium 4.6 mmol/L (3.5-5.1); Protein, Total 6.6 g/dL (6.0-8.3); Sodium 135 mmol/L (136-145)
--- NOTE | 2017-12-07 20:15 | ULT ---
LEFT UPPER EXTREMITY VENOUS DOPPLER: Date: 12-07-17 Provided Clinical History: Left wrist and arm edema. FINDINGS: Grayscale and color doppler sonography with spectral analysis was performed of the left internal jugu lar, left subclavian, left axillary, left basilic left cephalic, left radial, and left ulnar veins as well as the left brachial vein. The left cephalic vein in the upper arm is not visualized. Given this limitation, there is no sonogra phic evidence for venous thrombosis involving the interrogated venous structures of the left upper ex tremity. IMPRESSION: No sonographic evidence for left upper extremity deep venous thrombosis with limitations as above. POS: WILLIAN
--- NOTE | 2017-12-07 20:32 | RAD ---
PORTABLE CHEST: Date: 12-07-17 Provided Clinical History: Cough. FINDINGS: Comparison 11-22-17 Cardiac and mediastinal silhouette is unchanged in appearance. Vascular calcification involves the ao rtic arch. Elevation of the right hemidiaphragm is again noted. Pleural and/or parenchymal opacity of the left lung base cannot be excluded on the basis of this study. No evidence for pneumothorax. IMPRESSION: Possible left pleural and/or parenchymal opacity. Correlation with a lateral view may be useful. POS: WILLIAN
[2017-12-07] MEDS ORDERED: Ondansetron HCl/PF 4 MG/2 ML Vial IVP PRN (22:11)
[2017-12-07] MEDS ORDERED: traMADol HCl 50 MG TAB PO PRN (23:51)
[2017-12-08] MEDS ORDERED: HYDROcodone/Acetaminophen 5/325 mg Tablet PO PRN (00:04)
[2017-12-08] MEDS ORDERED: Ondansetron ODT 4 MG TAB PO PRN (00:04)
[2017-12-08] MEDS ORDERED: Acetaminophen 325 MG TAB PO PRN (00:04)
--- NOTE | 2017-12-08 01:12 | HP ---
Primary care physician is out of town, per the note of 11/21/2017, from prior stay, primary care phys alfonso is Dr. Ricki Cancino. TIME OF SERVICE: 2345. CHIEF COMPLAINT: Left upper extremity swelling. HISTORY OF PRESENT ILLNESS: Ms. Cifuentes is an 82-year-old white female [facility] for osteomyelitis and peripheral arterial disease, status post left above-the -knee amputation. She was discharged home on Cipro which she finished about 4 or 5 days ago. She has had a 2-day history of left upper extremity swelling. She was noted to have some swelling fi rst thing on Thursday morning which was to be on 12/05/2017. She has been laying on that side all ni ght and so her family rolled her and watched. Through the day, the swelling, it did seem to be a lit tle bit better, but did not go away. By the morning of 12/07/2017, it had really not disappeared. [facility] nurse came to see her this morning and was concerned that it could be a blood clot in her arm, so they sent her to the emergency department for evaluation. Family reports no fevers or chills, no nausea and vomiting, diarrhea, constipation, no sweats, no acu te events. In the emergency department, she was seen and evaluated. Labs were completely normal. White blood c ell count was 8.8 with normal differential. She had no fever. Blood pressure was initially elevated due to agitation, lactic acid was normal and temperature was 98.5. Vascular ultrasound was ordered that showed no left extremity DVT, but she was admitted for possible cellulitis. She got the meropenem in the emergency department and was transferred to the floor. On arrival, she has been agitated, but has been calmed down since then. She has no other current pro blems. PAST MEDICAL HISTORY: 1. Peripheral arterial disease. 2. Parkinson's disease. 3. Dementia. PAST SURGICAL HISTORY: 1. Left BKA on 11/22/2017. 2. Right BKA remotely. HOME MEDICATIONS: 1. Levothyroxine 50 mcg p.o. daily. 2. Protonix 40 mg p.o. daily. 3. Sinemet 25/100 one tab p.o. b.i.d. 4. Namenda 10 mg p.o. daily. 5. Plavix 75 mg p.o. daily. 6. Glucosamine chondroitin 1 tablet daily. 7. Aricept 10 mg p.o. daily. 8. Cipro 500 mg p.o. b.i.d. finished on 12/02/2017. 9. Aspirin 81 mg daily. 10. Ativan 1 mg p.o. at bedtime p.r.n. 11. Claritin 10 mg p.o. daily. 12. Tramadol 50 mg p.o. daily. ALLERGIES: 1. KEFLEX causes a rash. 2. PHENERGAN causes nausea, vomiting, and rash. 3. SULFA causes a rash. 4. Vancomycin caused upper extremity redness and swelling after infiltrated on 11/21/2017. SOCIAL HISTORY: Lives with family. Negative for habits x3. She is not communicative verbally. FAMILY HISTORY: Negative for clotting or bleeding disorder. No immune dysfunction. REVIEW OF SYSTEMS: A 10-point review of systems is not obtainable due to the patient's inability to communicate. PHYSICAL EXAMINATION: VITAL SIGNS: Temperature 98.5, pulse 101. Blood pressure on arrival 180/98 now 134/55, respiratory rate 18, satting 96% on room air. GENERAL: She is awake. She does not open her eyes, does not converse, but does respond to tactile s timuli. She appears to be in no acute distress. HEENT: She is normocephalic and atraumatic. Mucous membranes are moist. There are no visible lesio ns. She does not open her eyes spontaneously. Her eyes can be opened and her pupils react. NECK: Supple. There is no lymphadenopathy, JVD or thyromegaly. She has normal carotid upstrokes. I do not appreciate bruits. LUNGS: Clear, no wheezes, no rales, no rhonchi. No prolonged expiratory phase. CARDIOVASCULAR: She is slightly tachycardic, but regular. She has a 2/6 systolic ejection murmur at the right upper sternal border. There are no diastolic murmurs. ABDOMEN: Obese. It is nontender, nondistended. She has good bowel sounds. There is no rebound, ri gidity or guarding. EXTREMITIES: She has a left BKA with gloria still in place. The incision is clean, dry, and intact . Right BKA site is well healed. Left upper extremity is minimally edematous. There is no erythema and no increased heat. Right upper extremity appears normal. MUSCULOSKELETAL: Large joints appear uninflamed. There is no palpable effusion. NEUROLOGIC: Not fully testable due to patient not following commands. She is moving all 4 of her ex tremities and has good strength. LABORATORY DATA: Sodium 135, potassium 4.6, chloride 103, bicarb 21, BUN 23, creatinine 0.67, glucos e 105. Lactic acid is normal at 1.2. Liver functions are completely normal. CBC showed a white cou nt of 8.8 with normal differential, hemoglobin 11.6, hematocrit 36.4, platelet count 473,000. Chest x-ray showed left pleural or parenchymal opacity in the retrocardiac left lower lobe region, it is stable from x-ray done on 11/21/2017. Followup was recommended, but not done previously. The ul trasound of the left extremity showed no evidence of DVT. ASSESSMENT AND PLAN: 1. Left upper extremity edema, I think likely positional. It got better rapidly after a dose of sabi openem in the ER. I do not think this is infectious. She is not febrile. She has a normal white bl ood cell count, normal lactic acid and it was too quick for antibiotics to really cause improvement. At this point, we will continue to monitor. We will not continue antibiotic at this time. I will c ancel the Infectious Disease consult. Likely, she will be able to go home first thing in the morning . 2. Peripheral arterial disease, status post left [id number] amputation. Stump is clean, dry, an d intact. She has completed the antibiotic course. 3. Parkinson's disease, on Sinemet. We will continue. 4. Dementia, on Namenda and Aricept. We will continue. 5. Left lower lobe retrocardiac opacity: We will get a CT with contrast to better delineate. Certa inly, this turned out to be a math and then may change our future endeavors.
[2017-12-08] MEDS: Levothyroxine Sodium 50 MCG TAB PO SCH (05:23)
[2017-12-08] MEDS ORDERED: Meropenem 500 MG in Sodium Chloride 0.9% 100 ML IVPB SCH (06:00)
[2017-12-08] MEDS ORDERED: GLUCOSAMIN PO SCH (09:00)
[2017-12-08] MEDS ORDERED: CHONDROITIN PO SCH (09:00)
[2017-12-08] MEDS ORDERED: MSM PO SCH (09:00)
[2017-12-08] MEDS: Carbidopa/Levodopa CR 50-200 mg Tablet PO SCH ×2 (10:15→20:46)
[2017-12-08] MEDS: Docusate 100 MG CAP PO SCH ×2 (10:15→20:46)
[2017-12-08] MEDS: Simethicone Chewable 80 MG TAB PO SCH (10:15)
[2017-12-08] MEDS: Famotidine 20 MG TAB PO SCH (10:15)
[2017-12-08] MEDS: Clopidogrel Bisulfate 75 MG TAB PO SCH (10:15)
[2017-12-08] MEDS: Multivitamin W/ Minerals 1 TAB PO SCH (10:16)
--- NOTE | 2017-12-08 11:00 | CT ---
CONTRAST ENHANCED CT CHEST: History: Left lower lobe opacity. Technique: Contrast enhanced CT of the chest was performed. FINDINGS: There is calcification of the left main, LAD, and circumflex coronary arteries. This results in ossif ication of the right coronary artery. There is a newly developed paraesophageal hiatal hernia which was not present on the previous exam fr om 2010. There is herniation of the gastric fundus into the left hemithorax. IMPRESSION: Newly developed left sided posterior paraesophageal hernia. POS: WILLIAN
[2017-12-08] MEDS: Sodium Chloride 0.9% 1,000 ML IV SCH ×2 (12:35→21:51)
[2017-12-08] MEDS ORDERED: Milk Of Magnesia 30 ML UDCUP PO SCH (17:00)
[2017-12-08] MEDS ORDERED: Donepezil HCl 10 MG TAB PO SCH (17:00)
[2017-12-08] MEDS ORDERED: Loratadine 10 MG TAB PO SCH (21:00)
[2017-12-08] MEDS ORDERED: Melatonin 3 MG TAB PO SCH (21:00)
[2017-12-08] MEDS ORDERED: Lorazepam 1 MG TAB PO SCH (21:00)
[2017-12-09] MEDS: Levothyroxine Sodium 50 MCG TAB PO SCH (05:30)
[2017-12-09 06:02] VITALS: BMI 42.3
[2017-12-09 07:58] VITALS: BP 121/88; TEMP 98.8
[2017-12-09] MEDS: Multivitamin W/ Minerals 1 TAB PO SCH (08:25)
[2017-12-09] MEDS: Clopidogrel Bisulfate 75 MG TAB PO SCH (08:25)
[2017-12-09] MEDS: Famotidine 20 MG TAB PO SCH (08:25)
[2017-12-09] MEDS: Simethicone Chewable 80 MG TAB PO SCH (08:27)
[2017-12-09] MEDS: Docusate 100 MG CAP PO SCH (08:27)
[2017-12-09] MEDS: Carbidopa/Levodopa CR 50-200 mg Tablet PO SCH (09:27)
[2017-12-09] MEDS: Sodium Chloride 0.9% 1,000 ML IV SCH (09:28)
--- NOTE | 2017-12-09 10:40 | DIS ---
DATE OF ADMISSION: 12/07/2017 DATE OF DISCHARGE: 12/09/2017 DISCHARGE DIAGNOSES: 1. Left upper extremity edema likely mild thrombophlebitis, resolving. 2. Status post left [id number] amputation secondary to osteomyelitis/gangrene 11/23/2017. 3. Paraesophageal hernia. Incidental finding on CT imaging of the chest. 4. Peripheral arterial disease, advanced. 5. Parkinson's disease. 6. 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 7. Chronic normocytic anemia, stable. CONSULTATIONS: None. PERTINENT LAB AND X-RAY FINDINGS: Basic metabolic profile within normal limits. Lactic acid level 1 .2, calcium 9.2. LFTs within normal limits. CBC showed a white blood cell count of 8.8, hemoglobin 12, hematocrit 36, platelet count 473 with normal differential. Blood cultures x2 from 12/07/2017 sh owed no growth to date. Portable chest x-ray dated 12/07/2017 showed left pleural/parenchymal opacit y. CT of the chest dated 12/08/2017 showed left-sided posterior paraesophageal hernia. HOSPITAL COURSE: The patient was placed in observation status after presenting with left upper extre mity swelling and concern for possible thrombosis. The patient underwent vascular ultrasound of the left upper extremity on 12/07/2017 showing no evidence for deep venous thrombosis. The patient's pre sentation is consistent with positional edema and questionable influence of previous infiltration of a peripheral IV with vancomycin on prior hospital admission 11/21/2017 through 11/25/2017. The patie nt was given positional changes and monitored with overall resolution of edema with change of positio n. The patient underwent CT imaging of the chest as stated previously after chest imaging showed que stionable left lower lobe opacity. The patient was noted with paraesophageal hernia without recommen dations for any further intervention. The patient remained clinically stable throughout the hospital course with stable vital signs. Patient is tolerating regular oral intake, and ready for discharge on 12/09/2017. DISCHARGE MEDICATIONS: 1. Aspirin enteric coated 81 mg 1 tab p.o. daily. 2. Carbidopa/levodopa 25/100 mg 1 tab p.o. b.i.d. 3. Plavix 75 mg 1 tab p.o. daily. 4. Docusate sodium 100 mg p.o. b.i.d. 5. Aricept 10 mg one tab p.o. daily. 6. Glucosamine 1 tablet p.o. daily. 7. Levothyroxine 50 mcg 1 tab p.o. daily. 8. Loratadine 10 mg p.o. at bedtime. 9. Lorazepam 1 mg p.o. at bedtime. 10. Melatonin 6 mg p.o. at bedtime. 11. Namenda 10 mg p.o. daily. 12. Multivitamin 1 tab p.o. daily. 13. Protonix 40 mg 1 tab p.o. daily. 14. Simethicone 80 mg p.o. daily. 15. Tramadol 50 mg p.o. every 6 hours p.r.n. pain. FOLLOWUP: The patient will follow up with Dr. Ricki Cancino within 7 days of discharge. CONDITION ON DISCHARGE: Fair. ACTIVITY: Ad ethel. DIET: Heart healthy. CODE STATUS: Full. DISPOSITION: Home with [facility] 12/09/2017.
== END 2017-12-09 10:27 | disposition home health service (06) ==
LOC: ERS 17:27 → ONC 20:15 → INTOOBSV 20:15 → ONC 12-08 11:30
PROVIDERS: ADMIT Internal Medicine; ATTEND Internal Medicine
DX: R60.0 Localized edema (principal); K44.9 Diaphragmatic hernia without obstruction or gangrene; I73.9 Peripheral vascular disease, unspecified; D64.9 Anemia, unspecified; G20 Parkinson's disease; R91.8 Other nonspecific abnormal finding of lung field; F03.90 Unspecified dementia, unspecified severity, without behavioral disturbance, psychotic disturbance, mood disturbance, and anxiety; Z88.2 Allergy status to sulfonamides; Z88.1 Allergy status to other antibiotic agents; Z79.82 Long term (current) use of aspirin; Z79.899 Other long term (current) drug therapy; Z89.612 Acquired absence of left leg above knee; Z89.512 Acquired absence of left leg below knee; Z89.511 Acquired absence of right leg below knee
CPT/HCPCS: 71045; 71260; 80053; 83605; 85025; 87040; 87149 ×2; 93971; 96361 ×2; 96374; 99285; G0378; 36415; A4216; J2185